=== PATIENT | female | born 1955 | race Two or more races ===

== ENCOUNTER 2024-09-21 10:20 | Emergency (ER) | payer OTHER ==
[~2024-09-21] VITALS: Ht 175.3 cm; Wt 104.3 kg
[2024-09-21] MEDS ORDERED: ELIQUIS5 MG (10:48)
[2024-09-21] MEDS ORDERED: METHOTREXATE (10:49)
[2024-09-21 11:53] LABS: MEAN CELL VOLUME 90.1 fL (80.00-100.00); MEAN CORPUSCULAR HGB CONC 31.9 g/dl (32.0-36.0); PLATELET COUNT 435 K/uL (150-450); RED BLOOD COUNT 3.77 M/uL (4.00-6.00); RED CELL DISTRIBUTION WIDTH 18.7 % (11.5-14.5)
[2024-09-21 12:08] LABS: HEMOGLOBIN 10.8 g/dL (12.0-15.00); MEAN CORPUSCULAR HEMOGLOBIN 28.6 pg (27.00-32.0)
[2024-09-21 13:13] LABS: INR 1.07; PARTIAL THROMBOPLASTIN TIME 33.3 SECONDS (22.0-34.0); PROTHROMBIN TIME 11.6 SECONDS (9.0-11.5)
[2024-09-21 13:15] LABS: CALCIUM 9.1 mg/dL (8.5-10.1); CREATININE SERUM 0.48 mg/dL (0.55-1.02); POTASSIUM 4.88 mEq/L (3.5-5.1)
== END 2024-09-21 15:41 | disposition home or self-care (01) ==
LOC: ER 10:23
PROVIDERS: Emergency Medicine
DX: R60.0 Localized edema (principal); Z88.8 Allergy status to other drugs, medicaments and biological substances; F32.89 Other specified depressive episodes; Z86.72 Personal history of thrombophlebitis